=== PATIENT | male | born 1955 | race African-American/Black ===

== ENCOUNTER 2022-02-20 17:17 | Inpatient (IN) ==
[2022-02-20] MEDS ORDERED: ONDANSETRON 4 MG/2 ML VIAL IV PRN (19:22)
[2022-02-20] MEDS ORDERED: MORPHINE 2 MG/1 ML SYRINGE IV PRN (19:22)
[2022-02-20] MEDS ORDERED: DEXTROSE 10% 250 ML BAG IV PRN (19:22)
[2022-02-20] MEDS ORDERED: guaiFENesin/DM ER 600-30 MG TABLET PO PRN (19:22)
[2022-02-20] MEDS ORDERED: hydrALAZINE 20 MG/1 ML VIAL IV PRN (19:22)
[2022-02-20] MEDS ORDERED: NICOTINE 21 MG/24 HR PATCH TRANSDERM PRN (19:22)
[2022-02-20] MEDS ORDERED: GLUCAGON 1 MG VIAL IM PRN (19:22)
[2022-02-20] MEDS ORDERED: BROMELAINS MISC SCH (21:00)
[2022-02-20] MEDS ORDERED: ENOXAPARIN 40 MG/0.4 ML SYRINGE SUBCUT SCH (21:00)
[2022-02-20 22:58] LABS: Mucus,Urine Occasional /LPF (Occasional); Squamous Epithelial Cell,Urine Occasional /HPF (0-10); Urine Appearance Clear (Clear); Urine Color Dark Yellow (Yellow); Urine Specific Gravity 1.015 (1.001-1.035); Urine pH 5.5 (4.5-8.0)
[2022-02-20 22:59] LABS: Bilirubin,Urine Moderate mg/dL (Negative); Blood, Urine Negative (Negative); Glucose,Urine (UA) Negative (Negative); Ketones,Urine Negative (Negative); Nitrite,Urine Negative (Negative); Protein,Urine Negative (Negative)
[2022-02-20] MEDS: rOPINIRole 0.25 MG TABLET PO SCH (23:35)
[2022-02-20] MEDS: SODIUM CHLORIDE 0.9% 1,000 ML IV SCH (23:35)
[2022-02-20] MEDS: tiZANidine 4 MG TABLET PO SCH (23:35)
[2022-02-20] MEDS: PIPERACILLIN/TAZOBACTAM 3,375 MG in SODIUM CHLORIDE 0.9% 100 ML IV SCH (23:36)
[2022-02-21] LABS: Albumin 3.4 G/DL (3.4-5.0); Bilirubin,Total 1.5 MG/DL (0.20-1.00); Calcium 9.1 MG/DL (8.5-10.1); Osmolality,Calculated 277.5 MOS/KG (273-304); Potassium 3.6 MMOL/L (3.5-5.1); Total Protein 7.2 G/DL (6.4-8.2)
[2022-02-21 00:12] LABS: Basophils % 0.1 % (0.0-0.8); Eosinophils % 0.1 % (0.00-10.9); Hematocrit 38.2 VOL% (42.0-52.0); Hemoglobin 12.5 GM/DL (14.0-18.0); Immature Granulocytes % 0.6 %; Immature Granulocytes Absolute 0.08 #; Lymphocytes # 1.8 10*3/uL (1.4-4.0); Lymphocytes % 12.8 % (21.2-54.2); Mean Corpuscular HGB Conc 32.7 GM/DL (32-36); Mean Corpuscular Volume 96.5 FL (87-102); Mean Platelet Volume 9.9 FL (9.6-12.0); Monocytes % 6.7 % (1.7-12.7); Neutrophils % 79.7 % (38.7-73.9); Platelet Count 197 T/CUMM (130-400); Red Blood Count 3.96 MC/CUMM (3.8-5.5); Red Cell Distribution Width 12.5 % (9.3-17.3); White Blood Count 14.3 T/CUMM (4-12)
[2022-02-21] MEDS: PIPERACILLIN/TAZOBACTAM 3,375 MG in SODIUM CHLORIDE 0.9% 100 ML IV SCH ×3 (04:07→20:17)
[2022-02-21 05:52] LABS: Basophils % 0.2 % (0.0-0.8); Eosinophils # 0.1 10*3/uL (0.0-0.87); Eosinophils % 0.5 % (0.00-10.9); Hematocrit 39.2 VOL% (42.0-52.0); Hemoglobin 12.7 GM/DL (14.0-18.0); Immature Granulocytes % 0.4 %; Immature Granulocytes Absolute 0.05 #; Lymphocytes # 2.2 10*3/uL (1.4-4.0); Lymphocytes % 16.7 % (21.2-54.2); Mean Corpuscular HGB Conc 32.4 GM/DL (32-36); Mean Corpuscular Volume 96.6 FL (87-102); Monocytes # 0.8 10*3/uL (0.11-0.8); Monocytes % 5.8 % (1.7-12.7); Neutrophils % 76.4 % (38.7-73.9); Platelet Count 200 T/CUMM (130-400); Red Blood Count 4.06 MC/CUMM (3.8-5.5); Red Cell Distribution Width 12.6 % (9.3-17.3); White Blood Count 13.2 T/CUMM (4-12)
[2022-02-21] MEDS: SODIUM CHLORIDE 0.9% 1,000 ML IV SCH ×2 (06:04→20:16)
[2022-02-21 06:22] LABS: Albumin 3.6 G/DL (3.4-5.0); Bilirubin,Total 1.7 MG/DL (0.20-1.00); Calcium 8.9 MG/DL (8.5-10.1); Osmolality,Calculated 282.3 MOS/KG (273-304); Potassium 3.9 MMOL/L (3.5-5.1); Risk Ratio 2.15; Total Protein 7.3 G/DL (6.4-8.2); VLDL Cholesterol 15.4 MG/DL
[2022-02-21] MEDS: amLODIPine 10 MG TABLET PO SCH (08:17)
[2022-02-21] MEDS: PANTOPRAZOLE 40 MG TABLET PO SCH (08:17)
[2022-02-21] MEDS: tiZANidine 4 MG TABLET PO SCH (20:18)
[2022-02-21] MEDS: rOPINIRole 0.25 MG TABLET PO SCH (20:18)
[2022-02-21] MEDS: TERAZOSIN 5 MG CAPSULE PO SCH (20:18)
[2022-02-21] MEDS: LATANOPROST 0.005% OPH SOLN 2.5 ML BOTTLE LEFT EYE SCH (20:19)
[2022-02-22] MEDS: SODIUM CHLORIDE 0.9% 1,000 ML IV SCH ×2 (02:48→15:30)
[2022-02-22] MEDS: PIPERACILLIN/TAZOBACTAM 3,375 MG in SODIUM CHLORIDE 0.9% 100 ML IV SCH ×3 (03:26→21:09)
[2022-02-22 06:05] LABS: Basophils % 0.2 % (0.0-0.8); Eosinophils # 0.2 10*3/uL (0.0-0.87); Eosinophils % 2.6 % (0.00-10.9); Hemoglobin 10.9 GM/DL (14.0-18.0); Immature Granulocytes % 0.4 %; Immature Granulocytes Absolute 0.03 #; Lymphocytes # 2.3 10*3/uL (1.4-4.0); Lymphocytes % 28.1 % (21.2-54.2); Mean Corpuscular HGB Conc 32.1 GM/DL (32-36); Mean Corpuscular Volume 97.4 FL (87-102); Mean Platelet Volume 9.6 FL (9.6-12.0); Monocytes # 0.7 10*3/uL (0.11-0.8); Monocytes % 8.9 % (1.7-12.7); Neutrophils % 59.8 % (38.7-73.9); Platelet Count 187 T/CUMM (130-400); Red Blood Count 3.49 MC/CUMM (3.8-5.5); Red Cell Distribution Width 12.6 % (9.3-17.3); White Blood Count 8.1 T/CUMM (4-12)
[2022-02-22 06:19] LABS: INR 0.9; PT Patient Result 10.3 SECS (10.1-12.1)
[2022-02-22 06:30] LABS: Bilirubin,Total 0.9 MG/DL (0.20-1.00); Calcium 8.5 MG/DL (8.5-10.1); Osmolality,Calculated 277.5 MOS/KG (273-304); Potassium 3.5 MMOL/L (3.5-5.1); Total Protein 6.4 G/DL (6.4-8.2)
[2022-02-22] MEDS ORDERED: INDOMETHACIN SUPP 50 MG SUPP RECTAL ONE ×2 (06:31→08:00)
[2022-02-22] MEDS ORDERED: MIDAZOLAM 2 MG/2 ML VIAL ONE (07:28)
[2022-02-22] MEDS ORDERED: fentaNYL 100 MCG/2 ML VIAL ONE ×2 (07:28→13:08)
[2022-02-22] MEDS ORDERED: LACTATED RINGERS 1,000 ML IV SCH (08:00)
[2022-02-22] MEDS: PANTOPRAZOLE 40 MG TABLET PO SCH (08:29)
[2022-02-22] MEDS: amLODIPine 10 MG TABLET PO SCH (08:29)
[2022-02-22] MEDS ORDERED: ONDANSETRON 4 MG/2 ML VIAL ONE (13:14)
[2022-02-22] MEDS ORDERED: PHENYLEPHRINE 1 MG/10 ML SYRINGE IV ONE (13:14)
[2022-02-22] MEDS ORDERED: LIDOCAINE 2% 5 ML VIAL ONE (13:14)
[2022-02-22] MEDS ORDERED: ROCURONIUM 50 MG/5 ML VIAL IV ONE (13:14)
[2022-02-22] MEDS ORDERED: SEVOFLURANE 1 UNIT/15 MINUTE INH ONE (13:14)
[2022-02-22] MEDS ORDERED: propofoL 200 MG/20 ML VIAL IV ONE (13:14)
[2022-02-22] MEDS ORDERED: SUCCINYLCHOLINE 200 MG/10 ML VIAL ONE (13:14)
[2022-02-22] MEDS ORDERED: SUGAMMADEX 200 MG/2 ML VIAL IV ONE (13:20)
[2022-02-22] MEDS: tiZANidine 4 MG TABLET PO SCH (21:08)
[2022-02-22] MEDS: TERAZOSIN 5 MG CAPSULE PO SCH (21:08)
[2022-02-22] MEDS: rOPINIRole 0.25 MG TABLET PO SCH (21:08)
[2022-02-22] MEDS: LATANOPROST 0.005% OPH SOLN 2.5 ML BOTTLE LEFT EYE SCH (21:09)
[2022-02-23] MEDS: PIPERACILLIN/TAZOBACTAM 3,375 MG in SODIUM CHLORIDE 0.9% 100 ML IV SCH ×3 (04:33→21:00)
[2022-02-23] MEDS: SODIUM CHLORIDE 0.9% 1,000 ML IV SCH ×2 (04:33→11:34)
[2022-02-23 06:33] LABS: Basophils % 0.4 % (0.0-0.8); Eosinophils # 0.3 10*3/uL (0.0-0.87); Eosinophils % 3.2 % (0.00-10.9); Hematocrit 33.5 VOL% (42.0-52.0); Hemoglobin 10.6 GM/DL (14.0-18.0); Immature Granulocytes % 0.4 %; Immature Granulocytes Absolute 0.03 #; Lymphocytes # 2.2 10*3/uL (1.4-4.0); Lymphocytes % 27.9 % (21.2-54.2); Mean Corpuscular HGB Conc 31.6 GM/DL (32-36); Mean Corpuscular Volume 97.4 FL (87-102); Mean Platelet Volume 9.5 FL (9.6-12.0); Monocytes # 0.7 10*3/uL (0.11-0.8); Monocytes % 9.6 % (1.7-12.7); Neutrophils % 58.5 % (38.7-73.9); Platelet Count 176 T/CUMM (130-400); Red Blood Count 3.44 MC/CUMM (3.8-5.5); Red Cell Distribution Width 12.5 % (9.3-17.3); White Blood Count 7.7 T/CUMM (4-12)
[2022-02-23 06:50] LABS: Calcium 8.6 MG/DL (8.5-10.1); Osmolality,Calculated 281.1 MOS/KG (273-304); Potassium 3.9 MMOL/L (3.5-5.1)
[2022-02-23 06:53] LABS: Albumin 2.8 G/DL (3.4-5.0); Bilirubin,Direct 0.37 MG/DL (0.0-0.20); Bilirubin,Indirect 0.4 MG/DL (0.0-1.0); Bilirubin,Total 0.8 MG/DL (0.20-1.00); Total Protein 5.9 G/DL (6.4-8.2)
[2022-02-23] MEDS: POLYETHYLENE GLYCOL POWDER 17 GM PACK PO SCH (08:59)
[2022-02-23] MEDS: amLODIPine 10 MG TABLET PO SCH (09:00)
[2022-02-23] MEDS: PANTOPRAZOLE 40 MG TABLET PO SCH (09:00)
[2022-02-23] MEDS: TERAZOSIN 5 MG CAPSULE PO SCH (22:03)
[2022-02-23] MEDS: tiZANidine 4 MG TABLET PO SCH (22:03)
[2022-02-23] MEDS: LATANOPROST 0.005% OPH SOLN 2.5 ML BOTTLE LEFT EYE SCH (22:03)
[2022-02-23] MEDS: rOPINIRole 0.25 MG TABLET PO SCH (22:03)
[2022-02-24] MEDS: PIPERACILLIN/TAZOBACTAM 3,375 MG in SODIUM CHLORIDE 0.9% 100 ML IV SCH ×3 (04:09→21:05)
[2022-02-24 05:23] LABS: Basophils % 0.4 % (0.0-0.8); Eosinophils # 0.3 10*3/uL (0.0-0.87); Eosinophils % 4.5 % (0.00-10.9); Hemoglobin 9.8 GM/DL (14.0-18.0); Immature Granulocytes % 0.1 %; Immature Granulocytes Absolute 0.01 #; Lymphocytes # 2.4 10*3/uL (1.4-4.0); Lymphocytes % 35.6 % (21.2-54.2); Mean Corpuscular HGB Conc 31.6 GM/DL (32-36); Mean Corpuscular Volume 97.8 FL (87-102); Mean Platelet Volume 9.7 FL (9.6-12.0); Monocytes # 0.6 10*3/uL (0.11-0.8); Monocytes % 8.6 % (1.7-12.7); Neutrophils % 50.8 % (38.7-73.9); Platelet Count 198 T/CUMM (130-400); Red Blood Count 3.17 MC/CUMM (3.8-5.5); Red Cell Distribution Width 12.4 % (9.3-17.3); White Blood Count 6.7 T/CUMM (4-12)
[2022-02-24 05:41] LABS: % Iron Saturation 26.6 % (18-50); Albumin 2.7 G/DL (3.4-5.0); Bilirubin,Total 0.6 MG/DL (0.20-1.00); Calcium 8.2 MG/DL (8.5-10.1); Osmolality,Calculated 278.3 MOS/KG (273-304); Potassium 3.3 MMOL/L (3.5-5.1); Total Protein 5.8 G/DL (6.4-8.2)
[2022-02-24 05:45] LABS: Folate 5.69 NG/ML (5.38-24.0)
[2022-02-24] MEDS: SODIUM CHLORIDE 0.9% 1,000 ML IV SCH ×3 (05:53→17:12)
[2022-02-24] MEDS ORDERED: MEPERIDINE 25 MG/1 ML VIAL IV PRN (06:14)
[2022-02-24] MEDS ORDERED: PROMETHAZINE INJ 25 MG in SODIUM CHLORIDE 0.9% 50 ML IV PRN (06:14)
[2022-02-24] MEDS ORDERED: diphenhydrAMINE 50 MG/1 ML VIAL IV PRN (06:14)
[2022-02-24] MEDS ORDERED: ONDANSETRON 4 MG/2 ML VIAL IV PRN (06:14)
[2022-02-24] MEDS ORDERED: TISSUE ADHESIVE 1 EACH APPLICATOR TOP ONE (07:12)
[2022-02-24] MEDS ORDERED: BUPIVACAINE MPF 0.25% 10 ML VIAL ONE (07:12)
[2022-02-24] MEDS ORDERED: LIDOCAINE 2%/EPI 20 ML VIAL ONE (07:13)
[2022-02-24] MEDS ORDERED: fentaNYL 100 MCG/2 ML VIAL ONE (07:28)
[2022-02-24] MEDS ORDERED: propofoL 200 MG/20 ML VIAL IV ONE (07:31)
[2022-02-24] MEDS ORDERED: ROCURONIUM 50 MG/5 ML VIAL IV ONE (07:31)
[2022-02-24] MEDS ORDERED: LIDOCAINE 2% 5 ML VIAL ONE (07:31)
[2022-02-24] MEDS ORDERED: ONDANSETRON 4 MG/2 ML VIAL ONE (07:31)
[2022-02-24] MEDS ORDERED: ceFAZolin 1,000 MG VIAL ONE (08:27)
[2022-02-24] MEDS: amLODIPine 10 MG TABLET PO SCH (08:28)
[2022-02-24] MEDS: POLYETHYLENE GLYCOL POWDER 17 GM PACK PO SCH (08:28)
[2022-02-24] MEDS: PANTOPRAZOLE 40 MG TABLET PO SCH (08:28)
[2022-02-24] MEDS ORDERED: METOPROLOL TARTRATE 5 MG/5 ML VIAL IV ONE (08:37)
[2022-02-24] MEDS ORDERED: PHENYLEPHRINE 1 MG/10 ML SYRINGE IV ONE (08:42)
[2022-02-24] MEDS ORDERED: NEOSTIGMINE 10 MG/10 ML VIAL ONE (09:02)
[2022-02-24] MEDS ORDERED: GLYCOPYRROLATE 0.4 MG/2 ML VIAL ONE (09:02)
[2022-02-24] MEDS ORDERED: LACTATED RINGERS 1,000 ML IV ONE (09:18)
[2022-02-24] MEDS: HYDROmorphone 1 MG/1 ML SYRINGE IV PRN ×2 (09:30→09:35)
[2022-02-24] MEDS ORDERED: POTASSIUM CHLORIDE 20 MEQ TABLET PO ONE (13:12)
[2022-02-24] MEDS: POTASSIUM CHLORIDE RIDER 10 MEQ/100 ML PREMIX IV SCH ×2 (17:16→17:23)
[2022-02-24] MEDS: FERROUS SULFATE 325 MG TABLET PO SCH (17:49)
[2022-02-24] MEDS: TERAZOSIN 5 MG CAPSULE PO SCH (21:04)
[2022-02-24] MEDS: LATANOPROST 0.005% OPH SOLN 2.5 ML BOTTLE LEFT EYE SCH (21:05)
[2022-02-24] MEDS: rOPINIRole 0.25 MG TABLET PO SCH (21:05)
[2022-02-24] MEDS: tiZANidine 4 MG TABLET PO SCH (21:05)
[2022-02-25] MEDS: PIPERACILLIN/TAZOBACTAM 3,375 MG in SODIUM CHLORIDE 0.9% 100 ML IV SCH ×3 (03:09→21:10)
[2022-02-25 05:46] LABS: Basophils % 0.4 % (0.0-0.8); Eosinophils # 0.3 10*3/uL (0.0-0.87); Eosinophils % 3.4 % (0.00-10.9); Hematocrit 31.7 VOL% (42.0-52.0); Hemoglobin 10.2 GM/DL (14.0-18.0); Immature Granulocytes % 0.4 %; Immature Granulocytes Absolute 0.03 #; Lymphocytes # 2.4 10*3/uL (1.4-4.0); Lymphocytes % 30.5 % (21.2-54.2); Mean Corpuscular HGB Conc 32.2 GM/DL (32-36); Mean Corpuscular Volume 98.1 FL (87-102); Mean Platelet Volume 9.5 FL (9.6-12.0); Monocytes # 0.6 10*3/uL (0.11-0.8); Monocytes % 8.2 % (1.7-12.7); Neutrophils % 57.1 % (38.7-73.9); Platelet Count 197 T/CUMM (130-400); Red Blood Count 3.23 MC/CUMM (3.8-5.5); Red Cell Distribution Width 12.4 % (9.3-17.3); White Blood Count 7.7 T/CUMM (4-12)
[2022-02-25 06:12] LABS: Albumin 2.7 G/DL (3.4-5.0); Bilirubin,Total 0.7 MG/DL (0.20-1.00); Calcium 8.7 MG/DL (8.5-10.1); Osmolality,Calculated 280.1 MOS/KG (273-304); Potassium 3.7 MMOL/L (3.5-5.1)
[2022-02-25] MEDS: FERROUS SULFATE 325 MG TABLET PO SCH ×2 (10:06→18:01)
[2022-02-25] MEDS: PANTOPRAZOLE 40 MG TABLET PO SCH (10:06)
[2022-02-25] MEDS: amLODIPine 10 MG TABLET PO SCH (10:06)
[2022-02-25] MEDS: CHOLECALCIFEROL 1,000 UNIT TABLET PO SCH (10:06)
[2022-02-25] MEDS: POLYETHYLENE GLYCOL POWDER 17 GM PACK PO SCH (10:07)
[2022-02-25] MEDS: SODIUM CHLORIDE 0.9% 1,000 ML IV SCH ×2 (13:51→13:52)
[2022-02-25] MEDS: LATANOPROST 0.005% OPH SOLN 2.5 ML BOTTLE LEFT EYE SCH (21:08)
[2022-02-25] MEDS: tiZANidine 4 MG TABLET PO SCH (21:09)
[2022-02-25] MEDS: TERAZOSIN 5 MG CAPSULE PO SCH (21:09)
[2022-02-25] MEDS: rOPINIRole 0.25 MG TABLET PO SCH (21:09)
[2022-02-26] MEDS: PIPERACILLIN/TAZOBACTAM 3,375 MG in SODIUM CHLORIDE 0.9% 100 ML IV SCH ×2 (05:21→12:50)
[2022-02-26] MEDS: CHOLECALCIFEROL 1,000 UNIT TABLET PO SCH (08:56)
[2022-02-26] MEDS: amLODIPine 10 MG TABLET PO SCH (08:56)
[2022-02-26] MEDS: PANTOPRAZOLE 40 MG TABLET PO SCH (08:56)
[2022-02-26] MEDS: FERROUS SULFATE 325 MG TABLET PO SCH (08:56)
[2022-02-26] MEDS: POLYETHYLENE GLYCOL POWDER 17 GM PACK PO SCH (08:59)
[2022-02-26 11:37] VITALS: BP 142/88
[2022-02-26] MEDS: SODIUM CHLORIDE 0.9% 1,000 ML IV SCH (12:44)
== END 2022-02-26 13:34 | disposition home or self-care (01) | DRG 418 ==
LOC: N.ED 17:17 → N.EDINP 19:21 → SUATTDRO 19:21 → N.3E 23:17
PROVIDERS: ADMIT Internal Medicine; ATTEND Internal Medicine
PROC: LAPCHOL (2022-02-24 08:08)